=== PATIENT | female | born 1960 | race Caucasian/White ===

== ENCOUNTER 2017-08-05 06:09 | Day surgery (SDC) | payer BC ==
[2017-08-04 10:50] VITALS: BMI 34.2
--- NOTE | 2017-08-05 02:07 | HP ---
DATE OF ADMISSION: 08/05/2017 Ms. Nena Nieto is a very pleasant 57-year-old female who comes in for colonoscopy for colon cancer s creening. The patient has no specific GI symptoms. Her grandfather had colon cancer. The patient h as no abdominal pain or rectal bleeding. ALLERGIES: None. SOCIAL HISTORY: The patient does not smoke or drink alcohol. MEDICAL ILLNESSES: 1. Hypertension. 2. Depression. 3. Anxiety. 4. Left knee surgery. 5. Left ovarian cyst removal. 6. Breast biopsy. PHYSICAL EXAMINATION: VITAL SIGNS: Pulse is 70, blood pressure 130/80. HEENT: Conjunctivae clear. CARDIOVASCULAR: Within normal limits. ABDOMEN: Soft to palpate. No organomegaly. No tenderness. No masses. ADMITTING DIAGNOSIS: Colon cancer screening, high risk with family history. PLAN: Colonoscopy.
--- NOTE | 2017-08-05 08:22 | OP ---
DATE OF PROCEDURE: 08/05/2017 SURGEON: Eladio Mosley M.D. OPERATIVE PROCEDURE: Colonoscopy. PREOPERATIVE DIAGNOSIS: A 57-year-old female undergoing colonoscopy for colon cancer jeannie ojeda. POSTOPERATIVE DIAGNOSES: 1. Mild diverticular disease around the hepatic flexure, proximal transverse colon. 2. Otherwise, normal colonoscopy. PROCEDURE IN DETAIL: The patient was placed on her left lateral position and was given sedation by [facility]. A rectal exam was done before the scope was advanced into the rectum. No lesions were felt on rectal exam. A [employer]ax video colonoscope was introduced into the rectum and adva nced all the way into the cecum. The prep was very good. The mucosa appeared normal. The appendice al orifice, ileocecal valve, and cecum, no pathology seen. The ascending colon, no pathology seen. There was mild diverticulosis seen over the proximal transverse colon, hepatic flexure area. The rem ainder the transverse colon, splenic flexure, descending colon, and sigmoid colon, no pathology seen. Rectum showed no lesions. The left colon was somewhat difficult to visualize. The patient is kind of gagging and not able to hold the air. The scope was advanced one more time and into the descendi ng colon. Again, the same problem was encountered. The colon was very spastic and also she is unabl e to keep the air insufflated and keeps on letting air out. However, there was no pathology in the s igmoid colon. DISCHARGE PLANNING: This is a 57-year-old female who came in for colonoscopy for colon can cer screening. The colonoscopy showed no pathology except for mild diverticula over the proximal tra nsverse colon, hepatic flexure. DISCHARGE RECOMMENDATIONS: 1. High-fiber diet. 2. The patient advised to call me if she develops abdominal pain, hematochezia or fever. 3. Repeat colonoscopy in 10 years.
[2017-08-05] MEDS ORDERED: Lidocaine 1% PF 5 ML VIAL ONE (15:24)
[2017-08-05] MEDS ORDERED: PROPOFOL 200 MG/20 ML VIAL ONE (15:24)
== END 2017-08-05 09:26 | disposition home or self-care (01) ==
LOC: SDC 06:09
PROVIDERS: ATTEND Internal Medicine Gastroenterology
PROC: 0DJD8ZZ Inspection of Lower Intestinal Tract, Via Natural or Artificial Opening Endoscopic (ICD-10-PCS; principal; 2017-08-05)
DX: Z12.11 Encounter for screening for malignant neoplasm of colon (principal); K57.30 Diverticulosis of large intestine without perforation or abscess without bleeding; I10 Essential (primary) hypertension; F32.9 Major depressive disorder, single episode, unspecified; F41.9 Anxiety disorder, unspecified; Z98.890 Other specified postprocedural states
CPT/HCPCS: J2001; J2704

== ENCOUNTER 2018-08-18 10:38 | Emergency (ER) | payer BC ==
[2018-08-18] MEDS ORDERED: Lidocaine 1% (PF) 30 ML VIAL ONE (12:32)
[2018-08-18 12:58] LABS: #Eosinphils 0.1 thou/uL (0.0-0.7); #Lymphocytes 2.1 thou/uL (1.20-3.40); #Monocytes 0.5 thou/uL (0.11-0.59); %Basophils 0.3 % (0.0-1.0); %Eosinophils 0.9 % (0.0-10.0); %Lymphocytes 19.4 % (21.0-51.0); %Monocytes 4.5 % (0.0-10.0); %Neutrophils 74.9 % (42.0-75.0); Hemoglobin 14.4 g/dL (12.0-16.0); Mean Corpuscular HGB CONC 32.8 g/dL (32.0-36.0); Mean Corpuscular Hemoglobin 31.8 pg (27.0-31.0); Mean Platelet Volume 8.8 fL (7.4-10.4); Platelet Count 183 thou/uL (130-400); RBC Distribution Width 11.9 % (11.5-14.5); Red Blood Cell (RBC) Count 4.51 mill/uL (4.20-5.40); White Blood Cell (WBC) Count 10.7 thou/uL (4.8-10.8)
[2018-08-18] MEDS ORDERED: Lorazepam 2 MG/ML VIAL ONE (13:29)
[2018-08-18 14:17] LABS: Anion Gap 18 mmol/L (10-20); Calcium 9.5 mg/dL (7.8-10.44); Carbon Dioxide 16 mmol/L (22-29); Chloride 104 mmol/L (98-107); Potassium 4.3 mmol/L (3.5-5.1); Sodium 134 mmol/L (136-145)
[2018-08-18 14:18] LABS: BUN (Urea Nitrogen) 24 mg/dL (9.8-20.1); Calc. Creatinine Clearance 0 mL/min (70-130); Estimated GFR-MDRD 57; Glucose 148 mg/dL (70-105)
== END 2018-08-18 14:35 | disposition home or self-care (01) ==
LOC: ERS 10:38
DX: S61.012A Laceration without foreign body of left thumb without damage to nail, initial encounter (principal); R55 Syncope and collapse; I10 Essential (primary) hypertension; W26.8XXA Contact with other sharp object(s), not elsewhere classified, initial encounter
CPT/HCPCS: 12001; 36415; 80048; 84484; 85025; 96374; J2001; J2060

== ENCOUNTER 2018-10-29 10:43 | Outpatient (CLI) | payer BC ==
--- NOTE | 2018-10-29 16:51 | MMO ---
Bilateral MAMMO Bilat Screen [id number]. CLINICAL HISTORY: Patient is 58 years old and is seen for screening. The patient has the following family history of breast cancer: paternal grandmother and cousin female. The patient has no personal history of cancer. The patient has a history of left Excisional Biopsy - benign. VIEWS: The views performed were: bilateral craniocaudal with tomosynthesis; bilateral mediolateral oblique with tomosynthesis; and bilateral exaggerated craniocaudal. FILMS COMPARED: The present examination has been compared to prior imaging studies performed at [facility] on 04/10/2015, 04/24/2016 and 05/26/2017, and at [facility] on 11/18/2013 and 01/13/2014. MAMMOGRAM FINDINGS: The breasts are heterogeneously dense, which could obscure a lesion on mammography. There are no suspicious masses, suspicious calcifications, or new areas of architectural distortion. IMPRESSION: THERE IS NO MAMMOGRAPHIC EVIDENCE OF MALIGNANCY. A ROUTINE FOLLOW-UP MAMMOGRAM IN 1 YEAR IS RECOMMENDED. THE RESULTS OF THIS EXAM WERE SENT TO THE PATIENT. ACR BI-RADS Category 1 - Negative MAMMOGRAPHY NOTE: 1. A negative mammogram report should not delay a biopsy if a dominant of clinically suspicious mass is present. 2. Approximately 10% to 15% of breast cancers are not detected by mammography. 3. Adenosis and dense breasts may obscure an underlying neoplasm.
== END 2018-10-29 10:44 | disposition home or self-care (01) ==
LOC: BICMAMMO 10:43
PROVIDERS: ATTEND Obstetrics & Gynecology
DX: Z12.31 Encounter for screening mammogram for malignant neoplasm of breast (principal); Z80.3 Family history of malignant neoplasm of breast
CPT/HCPCS: 77063; 77067

== ENCOUNTER 2020-11-13 15:42 | Emergency (ER) | payer BC ==
[2020-11-13 20:29] LABS: SARS-CoV-2 PCR by NAA Not Detected (NotDetected)
== END 2020-11-13 16:05 | disposition home or self-care (01) ==
LOC: ERS 15:42
DX: R09.81 Nasal congestion (principal); R53.83 Other fatigue; E11.9 Type 2 diabetes mellitus without complications; I10 Essential (primary) hypertension; Z20.822 Contact with and (suspected) exposure to COVID-19
CPT/HCPCS: 87635; 99283; U0003; U0005

== ENCOUNTER 2021-05-16 15:02 | Outpatient (CLI) | payer BC | END 2021-05-16 15:03 | disposition home or self-care (01) | LOC: BICMAMMO 15:02 | PROVIDERS: ATTEND Obstetrics & Gynecology | DX: Z12.31 Encounter for screening mammogram for malignant neoplasm of breast (principal); Z91.89 Other specified personal risk factors, not elsewhere classified; Z80.3 Family history of malignant neoplasm of breast | CPT/HCPCS: 77063; 77067 ==

== ENCOUNTER 2023-04-27 13:54 | Outpatient (CLI) | payer BC | END 2023-04-27 13:55 | disposition home or self-care (01) | LOC: BICMAMMO 13:54 | PROVIDERS: ATTEND Family Medicine Sports Medicine | DX: Z12.31 Encounter for screening mammogram for malignant neoplasm of breast (principal); Z80.3 Family history of malignant neoplasm of breast; Z91.89 Other specified personal risk factors, not elsewhere classified | CPT/HCPCS: 77063; 77067 ==

== ENCOUNTER 2023-08-18 12:38 | Outpatient (CLI) | payer BC | END 2023-08-18 12:39 | disposition home or self-care (01) | LOC: BICRAD 12:38 | PROVIDERS: ATTEND Family Medicine Sports Medicine | DX: R05.9 Cough, unspecified (principal) | CPT/HCPCS: 71046 ==

== ENCOUNTER 2025-03-21 13:53 | Outpatient (CLI) | payer MEDICARE | END 2025-03-21 13:54 | disposition home or self-care (01) | LOC: CT 13:53 | PROVIDERS: ATTEND Orthopaedic Surgery | DX: Z01.818 Encounter for other preprocedural examination (principal); M17.32 Unilateral post-traumatic osteoarthritis, left knee ==

== ENCOUNTER 2025-03-28 11:25 | Outpatient (CLI) | payer MEDICARE ==
[2025-03-28 12:30] LABS: #Basophils 0.05 10x3/uL (0.0-0.2); #Eosinophils 0.12 10x3/uL (0.0-0.7); #Monocytes 0.52 10x3/uL (0.11-0.59); #Neutrophils 6.87 10x3/uL (1.40-6.50); %Basophils 0.5 % (0.0-1.0); %Eosinophils 1.2 % (0.0-10.0); %Lymphocytes 21.6 % (21.0-51.0); %Monocytes 5.4 % (0.0-10.0); %Neutrophils 70.9 % (42.0-75.0); Hematocrit 42.6 % (36.0-47.0); Hemoglobin 13.8 g/dL (12.0-16.0); Mean Corpuscular Hemoglobin 30.7 pg (27.0-31.0); Mean Corpuscular Volume 94.7 fL (78.0-98.0); Platelet Count 218 10x3/uL (130-400); Red Blood Cell (RBC) Count 4.50 mill/uL (4.20-5.40); White Blood Cell (WBC) Count 9.70 10x3/uL (4.8-10.8)
[2025-03-28 12:56] LABS: INR-International Normal Ratio 1.0; Prothrombin Time 13.3 sec (12.0-14.7)
[2025-03-28 13:12] LABS: ALT (SGPT) 10 U/L (Less than 34); AST (SGOT) 19 U/L (11-34); Albumin 4.1 g/dL (3.1-4.5); Alkaline Phosphatase 82 U/L (40-110); Anion Gap 13 mmol/L (10-20); BUN (Urea Nitrogen) 23 mg/dL (9.8-20.1); Bilirubin, Total 1.6 mg/dL (0.3-1.2); Calc. Creatinine Clearance 0 mL/min (70-130); Calcium 9.6 mg/dL (7.8-10.44); Carbon Dioxide 25 mmol/L (23-31); Chloride 108 mmol/L (98-107); Globulin 2.9 g/dL (2.4-3.5); Glucose 98 mg/dL (80-115); Potassium 3.8 mmol/L (3.5-5.1); Sodium 142 mmol/L (136-145)
== END 2025-03-28 11:26 | disposition home or self-care (01) ==
LOC: LABBT 11:25
PROVIDERS: ATTEND Orthopaedic Surgery
DX: Z01.818 Encounter for other preprocedural examination (principal); M17.32 Unilateral post-traumatic osteoarthritis, left knee
CPT/HCPCS: 80053; 85025; 85610; 87081; 93005; 93010